=== PATIENT | female | born 1955 | race Caucasian/White ===

== ENCOUNTER 2017-05-01 14:30 | Emergency (ER) | payer SELFPAY ==
[~2017-05-01] VITALS: Ht 157.5 cm; Wt 124.7 kg
[2017-05-01 14:41] VITALS: TEMP 36.8; Ht 157.5 cm; Wt 124.7 kg
[2017-05-01] MEDS ORDERED: MoRPHine SULFATE 4 MG/ML 1 ML CARP\\VIAL IV STA (15:04)
[2017-05-01] MEDS ORDERED: TRAM-10 PO (15:16)
--- NOTE | 2017-05-01 15:31 | EMERGENCY ROOM VISIT NOTE ---
History First contact with patient: 14:47 Chief Complaint: FALL Stated Complaint: FALL/SHOULDER PAIN History of Present Illness The patient is a 61 year old female who presents to the Emergency Room with complaints of left shoulder pain after a fall today. The patient tripped on the curb and landed on her knees and tried to balance with her right hand. she complains of left shoulder pain worse with movement though she denies falling on her left side. denies any palpitations, dizziness, CP prior to fall. denies any head injury or LOC. Source of History: patient Symptom Intensity: moderate Quality: ache Timing: constant Modifying Factors (Relieving): movement Review of Systems See HPI for pertinent positives & negatives. A total of 10 systems reviewed and were otherwise negative. Constitutional: No fever, No chills ENT: No hearing loss Respiratory: No cough, No sputum, No shortness of breath Cardiovascular: No chest pain Abdomen: No pain Musculoskeletal: + joint pain (left shoulder pain) Neurologic: No memory loss, No paralysis, No numbness/tingling Past Medical/Surgical History Medical Problems: (1) Osteoarthritis Social History Smoking Status: Never Smoker Current/Historical Medications Scheduled Tramadol (Ultram), 1 TAB PO QID Scheduled PRN Hydrocodone/Acetaminophen 5MG/325MG ([place] 5MG/325MG), 1 TABLET PO Q6H PRN for Pain Physical Exam Vital Signs Date Time Temp Pulse Resp B/P (MAP) Pulse Ox O2 Delivery O2 Flow Rate FiO2 05/01/17 18:23 107 18 155/98 97 05/01/17 16:43 92 16 165/77 96 Room Air 05/01/17 15:32 99 20 173/94 94 Room Air 05/01/17 14:41 36.8 105 18 178/98 96 Room Air Physical Exam GENERAL: Patient is in no acute distress. HEENT: No acute trauma, normocephalic atraumatic, mucous membranes moist, no nasal congestion, no scleral icterus. NECK: No stridor, no adenopathy, no meningismus, trachea is midline. LUNGS: Clear to auscultation bilaterally, no wheeze, no rhonchi, breath sounds equal. HEART: Without murmurs gallops or rubs, regular rate and rhythm. ABDOMEN: Soft, nontender, bowel sounds positive, no hernias, no peritonitis. EXTREMITIES: Left arm in flexion with restricted ROM. Neurovascularly intact. bilateral knee swelling with ecchymosis and tender to palpation of bilateral knees. abrasion on right palm NEUROLOGIC: Oriented x 3, no acute motor or sensory deficits, no focal weakness. SKIN: No rash, no jaundice, no diaphoresis. Medical Decision & Procedures ER Provider Diagnostic Interpretation: L SHOULDER MIN 2 VIEWS ROUTINE CLINICAL HISTORY: fall trauma. Pain. COMPARISON: None. DISCUSSION: Moderate degenerative change left humeral joint. Moderate osteophytic reaction lateral aspect humeral head. Clinical cortical defect humeral neck CT left shoulder suggested as follow-up. IMPRESSION: Artifact versus nondisplaced cortical fracture left humeral neck. CT of the left shoulder is suggested as follow-up. The above report was generated using voice recognition software. It may contain grammatical, syntax or spelling errors. Electronically signed by: Gabriel Benjamin M.D. 05/01/2017 4:25 PM Dictated Date/Time: 05/01/2017 4:23 PM R KNEE 3 VIEWS CLINICAL HISTORY: 61 years-old Female presenting with fall on knees. TECHNIQUE: Frontal, sunrise, and lateral views of the right knee were obtained. COMPARISON: None. FINDINGS: Osteopenia suspected. Tricompartmental degenerative changes most severe in the patellofemoral and medial compartments. Medial joint space loss and subchondral sclerosis. Allowing for osteopenia, no displaced fracture. No patellar subluxation. Small knee joint effusion suspected. IMPRESSION: 1. No acute osseous injury. 2. Osteopenia suspected. 3. Tricompartmental degenerative changes. 4. Small knee joint effusion. Electronically signed by: Gareth Rocha M.D. 05/01/2017 4:23 PM Dictated Date/Time: 05/01/2017 4:21 PM L KNEE 3 VIEWS CLINICAL HISTORY: fall on knees trauma. Pain. COMPARISON: None. DISCUSSION: Degenerative changes of patellofemoral joint. Mild superior osteophytic reaction from the patella. No significant joint effusion. Mild degenerative change medial and to lesser extent lateral joint compartment. There is no evidence for soft tissue swelling. IMPRESSION: Mild to moderate degenerative change of the patellofemoral and medial joint compartments. No acute process. The above report was generated using voice recognition software. It may contain grammatical, syntax or spelling errors. Electronically signed by: Gabriel Benjamin M.D. 05/01/2017 4:23 PM Dictated Date/Time: 05/01/2017 4:22 PM [~ rep ct add3]] L UPPER EXTREMITY WITHOUT CLINICAL HISTORY: 61 years-old Female presenting with ? nondisplaced humeral fracture. TECHNIQUE: Multidetector CT of the left shoulder was performed without the use of intravenous contrast. 3-D volumetric and/or maximum intensity projection (MIP) images were subsequently reconstructed for review. IV contrast: None. A dose lowering technique was used consistent with the principles of ALARA (as low as reasonably achievable). COMPARISON: Plain radiograph performed earlier the same day. CT DOSE (mGy.cm): The estimated cumulative dose is 1118.65 mGy.cm. FINDINGS: Pocket Builder topogram: Unremarkable. Nondisplaced fracture of the left humeral anatomic neck. The fracture plane appears to extend into the intertubercular groove and posterior to the greater trochanter. The lesser trochanter appears directly involved. No subluxation of the humeral head. No additional fracture. The acromioclavicular joint is intact. Mild degenerative changes evident. No soft tissue hematoma. No large joint effusion. Visualized portion of the left hemithorax demonstrates a clear left lung. Cardiomegaly. IMPRESSION: Nondisplaced fracture of the anatomic left humeral neck further detailed above. Electronically signed by: Gareth Rocha M.D. 05/01/2017 5:21 PM Dictated Date/Time: 05/01/2017 5:16 PM Medications Administered Medications (Trade) Dose Ordered Sig/Torri Route Start Time Stop Time Status Last Admin Dose Admin Morphine Sulfate (MoRPHine SULFATE INJ) 4 mg NOW STAT IV 05/01/17 15:04 05/01/17 15:14 DC 05/01/17 15:28 4 MG Medical Decision Primary doctor Prior records reviewed and summarized above. Triage Nursing notes reviewed. Additional history obtained from the patient. The patient's history was concerning for left shoulder pain after a fall. Differential diagnosis: Etiologies such as fracture, dislocation, neurovascular compromise, compartment syndrome, soft tissue injury, as well as others were entertained. Physical examination: Consistent with an isolated ER treatment provided: IV lock Morphine 4 mg IV On reassessment the patient felt better. Diagnostics interpreted by me: Xrays of shoulder revealed nondisplaced humeral fracture and CT of the shoulder was obtained which confirmed Nondisplaced fracture of the anatomic left humeral neck She was treated with 4 mg of IV morphine for pain relief and fitted with an arm sling Imaging studies: Xrays as above. 61-year-old female presented to the ER with complaints of left arm pain after she had a mechanical fall and fell on her knees. X-rays of bilateral knees were negative, x-ray of the shoulder revealed nondisplaced fracture of the left humeral neck which was further confirmed with a CT scan. She was treated with IV morphine 4 mg and fitted with an arm sling. She was discharged in stable condition with Ellsworth 5/325 mg to be used every 6 hours as needed for pain relief and advised to continue to use the arm sling. Orthopedics was contacted and she was recommended to follow up with orthopedics the next day for further management. Impression Primary Impression: Humeral fracture Additional Impression: Fall Departure Information Prescriptions Hydrocodone/Acetaminophen 5MG/325MG ([place] 5MG/325MG) Tab 1 TABLET PO Q6H Y for Pain, #15 TAB PRN PAIN Prov: Juliette Logan MD 05/01/17 Patient Instructions My [facility] Resident Tracking Resident Involvement: Resident Care Provided Care Provided: Adult ED Problem Qualifiers
--- NOTE | 2017-05-01 16:24 | DIAGNOSTIC IMAGING REPORT ---
L KNEE 3 VIEWS CLINICAL HISTORY: fall on knees trauma. Pain. COMPARISON: None. DISCUSSION: Degenerative changes of patellofemoral joint. Mild superior osteophytic reaction from the patella. No significant joint effusion. Mild degenerative change medial and to lesser extent lateral joint compartment. There is no evidence for soft tissue swelling. IMPRESSION: Mild to moderate degenerative change of the patellofemoral and medial joint compartments. No acute process. The above report was generated using voice recognition software. It may contain grammatical, syntax or spelling errors. Electronically signed by: Gabriel Benjamin M.D. 05/01/2017 4:23 PM Dictated Date/Time: 05/01/2017 4:22 PM
--- NOTE | 2017-05-01 16:24 | DIAGNOSTIC IMAGING REPORT ---
R KNEE 3 VIEWS CLINICAL HISTORY: 61 years-old Female presenting with fall on knees. TECHNIQUE: Frontal, sunrise, and lateral views of the right knee were obtained. COMPARISON: None. FINDINGS: Osteopenia suspected. Tricompartmental degenerative changes most severe in the patellofemoral and medial compartments. Medial joint space loss and subchondral sclerosis. Allowing for osteopenia, no displaced fracture. No patellar subluxation. Small knee joint effusion suspected. IMPRESSION: 1. No acute osseous injury. 2. Osteopenia suspected. 3. Tricompartmental degenerative changes. 4. Small knee joint effusion. Electronically signed by: Gareth Rocah M.D. 05/01/2017 4:23 PM Dictated Date/Time: 05/01/2017 4:21 PM
--- NOTE | 2017-05-01 16:26 | DIAGNOSTIC IMAGING REPORT ---
L SHOULDER MIN 2 VIEWS ROUTINE CLINICAL HISTORY: fall trauma. Pain. COMPARISON: None. DISCUSSION: Moderate degenerative change left humeral joint. Moderate osteophytic reaction lateral aspect humeral head. Clinical cortical defect humeral neck CT left shoulder suggested as follow-up. IMPRESSION: Artifact versus nondisplaced cortical fracture left humeral neck. CT of the left shoulder is suggested as follow-up. The above report was generated using voice recognition software. It may contain grammatical, syntax or spelling errors. Electronically signed by: Gabriel Benjamin M.D. 05/01/2017 4:25 PM Dictated Date/Time: 05/01/2017 4:23 PM
--- NOTE | 2017-05-01 17:22 | DIAGNOSTIC IMAGING REPORT ---
L UPPER EXTREMITY WITHOUT CLINICAL HISTORY: 61 years-old Female presenting with ? nondisplaced humeral fracture. TECHNIQUE: Multidetector CT of the left shoulder was performed without the use of intravenous contrast. 3-D volumetric and/or maximum intensity projection (MIP) images were subsequently reconstructed for review. IV contrast: None. A dose lowering technique was used consistent with the principles of ALARA (as low as reasonably achievable). COMPARISON: Plain radiograph performed earlier the same day. CT DOSE (mGy.cm): The estimated cumulative dose is 1118.65 mGy.cm. FINDINGS: Imposer topogram: Unremarkable. Nondisplaced fracture of the left humeral anatomic neck. The fracture plane appears to extend into the intertubercular groove and posterior to the greater trochanter. The lesser trochanter appears directly involved. No subluxation of the humeral head. No additional fracture. The acromioclavicular joint is intact. Mild degenerative changes evident. No soft tissue hematoma. No large joint effusion. Visualized portion of the left hemithorax demonstrates a clear left lung. Cardiomegaly. IMPRESSION: Nondisplaced fracture of the anatomic left humeral neck further detailed above. Electronically signed by: Gareth Rocha M.D. 05/01/2017 5:21 PM Dictated Date/Time: 05/01/2017 5:16 PM
[2017-05-01] MEDS ORDERED: HYDR-5688 PO (18:03)
[2017-05-01 18:23] VITALS: BP 155/98; PULSE 107; O2SAT 97
--- NOTE | 2017-05-01 18:29 | EMERGENCY ROOM VISIT NOTE ---
History Report prepared by Marco: Kevin Huber Under the Supervision of: Dr. Jono Knight M.D. First contact with patient: 14:47 Chief Complaint: FALL Stated Complaint: FALL/SHOULDER PAIN History of Present Illness The patient is a 61 year old female who presents to the Emergency Room with complaints of bilateral knee pain that began a couple of hours ago. She rates her pain an 8/10 in severity. She has a past medical history of osteoarthritis in her knees. Earlier today, the patient was walking when she accidentally tripped stepping up onto a curb. She fell onto her bilateral knees and right hand. She is experiencing associated left shoulder pain. Pt denies LOC, headache , visual changes, neck pain, chest pain, breathing difficulties, nausea, vomiting, abdominal pain, back pain, numbness, weakness, open wounds, active bleeding, or other complaints. The pain is exacerbated with movement. She does not think she landed on her left shoulder. She sure that she did not hit her head. It is no other pain complaints. Source of History: patient Onset: a couple of hours ago Position: knee (bilateral) Symptom Intensity: 8/10 Quality: ache Timing: constant Modifying Factors (Worsening): movement Note: She is having left shoulder pain as well. Review of Systems See HPI for pertinent positives and negatives. A total of ten systems were reviewed and were otherwise negative. Past Medical & Surgical Medical Problems: (1) Osteoarthritis Family History Omitted secondary to the patient's age. Social History Smoking Status: Never Smoker Smokeless Tobacco Use: No Drug Use: none Current/Historical Medications Scheduled Tramadol (Ultram), 1 TAB PO QID Scheduled PRN Hydrocodone/Acetaminophen 5MG/325MG ([place]idan 5MG/325MG), 1 TABLET PO Q6H PRN for Pain Allergies Coded Allergies: No Known Allergies (Unverified , 05/01/17) Physical Exam Vital Signs Date Time Temp Pulse Resp B/P (MAP) Pulse Ox O2 Delivery O2 Flow Rate FiO2 05/01/17 16:43 92 16 165/77 96 Room Air 05/01/17 15:32 99 20 173/94 94 Room Air 05/01/17 14:41 36.8 105 18 178/98 96 Room Air Physical Exam GENERAL: Awake, alert, well appearing, no distress HEAD: Normocephalic, atraumatic. No fong sign. No raccoon eyes. EYES: Normal conjunctiva. PERRL. EARS: External ears normal. Right TM normal. Left TM normal. NOSE: Atraumatic OROPHARYNX: Lips, tongue, and mucosa unremarkable. No erythema or exudate. NECK: Supple. No tracheal deviation. No posterior midline tenderness. No step offs noted. RESPIRATORY: CTA bilaterally CARDIAC: Regular rate, normal rhythm. No JVD. ABDOMEN: Inspection reveals no abnormalities. Soft, non distended. No tenderness to palpation. No hernias. BACK: No midline step offs or tenderness to palpation. Unremarkable. PELVIS: Stable to rock. SKIN: Normal. LYMPH: No adenopathy. MUSCULOSKELETAL: Contusion and ecchymosis to the anterior bilateral knees with tenderness to palpation. Relatively well preserved ROM. Left shoulder with limited ROM secondary to pain. Left upper humerus tenderness to palpation. No clavicular tenderness to the left side. There is an abrasion and contusion to the right palm. No wrist tenderness. The remainder to the right arm is atraumatic. NEURO: GCS 15. Normal sensorium. No sensory or motor deficits noted. Medical Decision & Procedures ER Provider Diagnostic Interpretation: Radiology results as stated below per my review and radiologist interpretation: L SHOULDER MIN 2 VIEWS ROUTINE CLINICAL HISTORY: fall trauma. Pain. COMPARISON: None. DISCUSSION: Moderate degenerative change left humeral joint. Moderate osteophytic reaction lateral aspect humeral head. Clinical cortical defect humeral neck CT left shoulder suggested as follow-up. IMPRESSION: Artifact versus nondisplaced cortical fracture left humeral neck. CT of the left shoulder is suggested as follow-up. The above report was generated using voice recognition software. It may contain grammatical, syntax or spelling errors. Electronically signed by: Gabriel Benjamin M.D. 05/01/2017 4:25 PM Dictated Date/Time: 05/01/2017 4:23 PM R KNEE 3 VIEWS CLINICAL HISTORY: 61 years-old Female presenting with fall on knees. TECHNIQUE: Frontal, sunrise, and lateral views of the right knee were obtained. COMPARISON: None. FINDINGS: Osteopenia suspected. Tricompartmental degenerative changes most severe in the patellofemoral and medial compartments. Medial joint space loss and subchondral sclerosis. Allowing for osteopenia, no displaced fracture. No patellar subluxation. Small knee joint effusion suspected. IMPRESSION: 1. No acute osseous injury. 2. Osteopenia suspected. 3. Tricompartmental degenerative changes. 4. Small knee joint effusion. Electronically signed by: Gareth Rocha M.D. 05/01/2017 4:23 PM Dictated Date/Time: 05/01/2017 4:21 PM L KNEE 3 VIEWS CLINICAL HISTORY: fall on knees trauma. Pain. COMPARISON: None. DISCUSSION: Degenerative changes of patellofemoral joint. Mild superior osteophytic reaction from the patella. No significant joint effusion. Mild degenerative change medial and to lesser extent lateral joint compartment. There is no evidence for soft tissue swelling. IMPRESSION: Mild to moderate degenerative change of the patellofemoral and medial joint compartments. No acute process. The above report was generated using voice recognition software. It may contain grammatical, syntax or spelling errors. Electronically signed by: Gabriel Benjamin M.D. 05/01/2017 4:23 PM Dictated Date/Time: 05/01/2017 4:22 PM L UPPER EXTREMITY WITHOUT CLINICAL HISTORY: 61 years-old Female presenting with ? nondisplaced humeral fracture. TECHNIQUE: Multidetector CT of the left shoulder was performed without the use of intravenous contrast. 3-D volumetric and/or maximum intensity projection (MIP) images were subsequently reconstructed for review. IV contrast: None. A dose lowering technique was used consistent with the principles of ALARA (as low as reasonably achievable). COMPARISON: Plain radiograph performed earlier the same day. CT DOSE (mGy.cm): The estimated cumulative dose is 1118.65 mGy.cm. FINDINGS: Hull Grinder topogram: Unremarkable. Nondisplaced fracture of the left humeral anatomic neck. The fracture plane appears to extend into the intertubercular groove and posterior to the greater trochanter. The lesser trochanter appears directly involved. No subluxation of the humeral head. No additional fracture. The acromioclavicular joint is intact. Mild degenerative changes evident. No soft tissue hematoma. No large joint effusion. Visualized portion of the left hemithorax demonstrates a clear left lung. Cardiomegaly. IMPRESSION: Nondisplaced fracture of the anatomic left humeral neck further detailed above. Electronically signed by: Gareth Rocha M.D. 05/01/2017 5:21 PM Dictated Date/Time: 05/01/2017 5:16 PM Medications Administered Medications (Trade) Dose Ordered Sig/Torri Route Start Time Stop Time Status Last Admin Dose Admin Morphine Sulfate (MoRPHine SULFATE INJ) 4 mg NOW STAT IV 05/01/17 15:04 05/01/17 15:14 DC 05/01/17 15:28 4 MG ED Course 1447: The patient was evaluated in room C2. A complete history and physical exam was performed. 1504: Ordered Morphine Sulfate 4 mg IV 1808: I reevaluated the patient. Discussed results and discharge instructions: She verbalized understanding and agreement. The patient is ready for discharge. Medical Decision Prior records reviewed and summarized above. Triage Nursing notes reviewed and agree them. The patient's history was concerning for traumatic injury. Differential diagnosis: Etiologies such as fracture, dislocation, neurovascular compromise, compartment syndrome, soft tissue injury, as well as others were entertained. Physical examination: Consistent with injuries to both knees, left shoulder, and right hand. Lower extremity examination was rather benign. No bony deformities or tenderness in the right upper extremity. ER treatment provided: IV morphine Sling On reassessment the patient felt better. Diagnostics interpreted by me: Imaging studies: Xrays and CT scan as above. The patient has multiple contusions as well as a nondisplaced left proximal humerus fracture. She is doing well. She is placed in a sling. She is ambulating. Consultation: A consultation was placed with the orthopedist, Dr. Eckert. The case was discussed and diagnostics were reviewed. She will be seen in the office tomorrow. The patient was seen and examined with Dr. Logan, resident physician. We discussed the case and treatments ordered, reviewed the results, and determine the disposition. Please refer to the resident's note for additional details. I have been directly involved with the management and disposition as well as independently evaluated the patient as documented in this note. By the evaluation outlined above other emergent etiologies such as those listed in the differential, as well as others, were deemed relatively unlikely. The patient was educated about the findings as listed above. All questions were answered and the patient was pleased with the treatment. Return instructions were outlined and the patient was discharged in stable condition. The patient was referred to [facility] for follow-up for a recheck of the current condition. Head Trauma GCS Score: 15 Medication Reconcilliation Current Medication List: was personally reviewed by me Blood Pressure Screening Patient's blood pressure: Elevated blood pressure Blood pressure disposition: Referred to PCP Impression Primary Impression: Left humeral fracture Additional Impressions: Fall Contusion of multiple sites Scribe Attestation The scribe's documentation has been prepared under my direction and personally reviewed by me in its entirety. I confirm that the note above accurately reflects all work, treatment, procedures, and medical decision making performed by me. Departure Information Dispostion Home / Self-Care Prescriptions Hydrocodone/Acetaminophen 5MG/325MG ([place] 5MG/325MG) Tab 1 TABLET PO Q6H Y for Pain, #15 TAB PRN PAIN Prov: Juliette Logan MD 05/01/17 Referrals Bari Snow D.O. Forms HOME CARE DOCUMENTATION FORM, IMPORTANT VISIT INFORMATION Patient Instructions My [facility] Additional Instructions You have been examined and treated today on an emergency basis only. This is not a substitute for, or an effort to provide, complete comprehensive medical care. It is impossible to recognize and treat all injuries or illnesses in a single emergency department visit. It is therefore important that you follow up closely with your physician. Call as soon as possible for an appointment. Return for worsening symptoms or if you develop any excruciating pain or numbness or tingling or any other concerning symptoms. - Use the sling as instructed - You may use norco 5 mg PO q6h as needed - Please call [facility] tomorrow morning and follow up with Dr. Eckert Problem Qualifiers
== END 2017-05-01 18:25 | disposition home or self-care (01) ==
LOC: EDBD 14:30 → C.EDC 14:32
DX: S42.295A Other nondisplaced fracture of upper end of left humerus, initial encounter for closed fracture (principal); W01.0XXA Fall on same level from slipping, tripping and stumbling without subsequent striking against object, initial encounter; S80.01XA Contusion of right knee, initial encounter; S80.02XA Contusion of left knee, initial encounter; S60.511A Abrasion of right hand, initial encounter; M19.90 Unspecified osteoarthritis, unspecified site